=== PATIENT | male | born 1955 | race African-American/Black ===

== ENCOUNTER → 2018-01-10 | Outpatient (CLI) | payer OTHER ==
[~2018-01-10] MED LIST: ATENOLOL50 MG PO; BENICAR40 MG PO; CARDIZEM60 MG PO
== END | disposition home or self-care (01) ==
LOC: AMB 09:00
DX: D17.0 Benign lipomatous neoplasm of skin and subcutaneous tissue of head, face and neck (principal); I10 Essential (primary) hypertension; E78.5 Hyperlipidemia, unspecified
CPT/HCPCS: 88304